=== PATIENT | male | born 1995 | race American Indian/Alaskan Native ===

== ENCOUNTER 2022-05-29 16:26 | Inpatient (IN) | payer SELFPAY ==
--- NOTE | 2022-05-29 17:24 | Emergency Department Report ---
ED Seizure HPI - General Chief Complaint: Seizure Stated Complaint: SEIZURE Time Seen by Provider: 05/29/22 17:05 Source: patient, EMS Mode of arrival: Stretcher Limitations: No Limitations - History of Present Illness Initial Comments: 27-year-old -Vietnamese male who reports having a tonic-clonic seizure according EMS patient had a seizure on the street. Patient denies having headache. Patient denies having any pain. Patient mitts that he has been drinking but reports only drinking 1 beer today. But he says he drank a sixpack yesterday. Complaint: seizure -: Sudden Description of Episode: loss of consciousness, tonic-clonic movement -: minutes(s) Seizure History: none Place: street/outdoors Possible Precipitating Event: alcohol withdrawal Associated Symptoms: denies other symptoms Treatments Prior to Arrival: none - Related Data Home Medications Medication Instructions Recorded Confirmed Last Taken No Known Home Medications [No 05/30/22 05/30/22 Unknown Reported Home Medications] Allergies Allergy/AdvReac Type Severity Reaction Status Date / Time No Known Allergies Allergy Verified 05/30/22 12:21 ED Review of Systems ROS: Stated complaint: SEIZURE Other details as noted in HPI Comment: All other systems reviewed and negative Constitutional: no symptoms reported Eyes: as per HPI ENT: as per HPI, other (Bit tongue) Respiratory: no symptoms reported Cardiovascular: as per HPI Endocrine: no symptoms reported Gastrointestinal: as per HPI, vomiting Musculoskeletal: as per HPI Neurological: as per HPI Psychiatric: as per HPI Hematological/Lymphatic: as per HPI ED Past Medical Hx - Past Medical History Previous Medical History?: No - Family History Family history: no significant - Social History Smoking Status: Current Every Day Smoker Substance Use Type: Alcohol - Medications Home Medications: Home Medications Medication Instructions Recorded Confirmed Last Taken Type No Known Home Medications [No 05/30/22 05/30/22 Unknown History Reported Home Medications] ED Physical Exam - General Limitations: No Limitations ED Course Vital Signs 05/29/22 05/29/22 05/29/22 16:40 16:45 17:01 Pulse Rate 77 76 82 Respiratory 19 17 18 Rate Blood Pressure 128/75 128/75 O2 Sat by Pulse 99 100 99 Oximetry 05/29/22 05/29/22 05/29/22 17:15 17:30 17:45 Pulse Rate 69 69 66 Respiratory 17 13 21 Rate Blood Pressure 123/78 128/75 126/75 O2 Sat by Pulse 99 99 99 Oximetry 05/29/22 05/29/22 05/29/22 18:01 18:15 18:31 Pulse Rate 63 74 59 L Respiratory 18 15 16 Rate Blood Pressure 126/75 129/73 123/78 O2 Sat by Pulse 100 100 100 Oximetry 05/29/22 05/29/22 05/29/22 18:45 19:01 19:15 Pulse Rate 60 59 L 62 Respiratory 15 18 15 Rate Blood Pressure 128/79 128/79 135/77 O2 Sat by Pulse 100 100 100 Oximetry 05/29/22 05/29/22 05/29/22 19:31 19:46 20:01 Pulse Rate 71 58 L 63 Respiratory 15 15 16 Rate Blood Pressure 135/77 135/77 O2 Sat by Pulse 100 100 100 Oximetry 05/29/22 05/29/22 05/29/22 20:15 20:31 20:45 Pulse Rate 67 62 66 Respiratory 15 18 13 Rate Blood Pressure 136/88 136/88 137/91 O2 Sat by Pulse 100 100 100 Oximetry 05/29/22 05/29/22 05/29/22 21:01 21:15 21:31 Pulse Rate 61 58 L 67 Respiratory 17 13 17 Rate Blood Pressure 137/91 128/65 128/65 O2 Sat by Pulse 100 100 100 Oximetry 05/29/22 05/29/22 05/29/22 21:45 22:01 22:15 Pulse Rate 68 60 68 Respiratory 18 19 11 L Rate Blood Pressure 137/88 137/88 133/80 O2 Sat by Pulse 100 100 100 Oximetry 05/29/22 05/29/22 05/29/22 22:31 22:35 22:40 Pulse Rate 72 69 Respiratory 18 22 Rate Blood Pressure 133/80 133/80 O2 Sat by Pulse 100 100 99 Oximetry 05/29/22 05/29/22 05/29/22 22:45 23:01 23:15 Pulse Rate 72 59 L 63 Respiratory 13 12 10 L Rate Blood Pressure 131/86 131/86 134/75 O2 Sat by Pulse 100 100 100 Oximetry 05/29/22 05/29/22 05/30/22 23:31 23:45 00:01 Pulse Rate 59 L 51 L 54 L Respiratory 15 15 17 Rate Blood Pressure 134/75 113/62 113/62 O2 Sat by Pulse 100 100 100 Oximetry 05/30/22 05/30/22 05/30/22 00:15 00:21 00:31 Pulse Rate 52 L 52 L 53 L Respiratory 14 13 14 Rate Blood Pressure 112/68 112/68 112/68 O2 Sat by Pulse 100 100 100 Oximetry 05/30/22 05/30/22 00:41 00:51 Pulse Rate 52 L 53 L Respiratory 14 13 Rate Blood Pressure 112/68 121/66 O2 Sat by Pulse 100 100 Oximetry ED Medical Decision Making - Lab Data Result diagrams: 05/30/22 04:07 05/30/22 04:07 Critical care attestation.: If time is entered above; I have spent that time in minutes in the direct care of this critically ill patient, excluding procedure time. ED Disposition Clinical Impression: Alcohol withdrawal delirium Disposition: 02 [facility]ORT TERM [facility]OSP[facility] Is pt being admited?: Yes Does the pt Need Aspirin: Yes Condition: Serious
[2022-05-29] MEDS ORDERED: LORazepam 2 MG/ML VIAL IM ONE (17:30)
[2022-05-29] MEDS ORDERED: LORazepam 1 MG TAB PO ONE (17:53)
--- NOTE | 2022-05-29 18:11 | Cat Scan Report ---
CT HEAD WITHOUT CONTRAST INDICATION / CLINICAL INFORMATION: seizure. TECHNIQUE: All CT scans at this location are performed using CT dose reduction for ALARA by means of automated exposure control. COMPARISON: None available. FINDINGS: CEREBRAL/CEREBELLAR PARENCHYMA: No significant abnormality. No acute territorial infarct. There is mi ld cerebellar atrophy for patient age, which is most notable within the right lateral cerebellar pancho sphere. HEMORRHAGE: No acute intra-axial hemorrhage or extra-axial fluid collection. MASS: No mass or mass effect. VENTRICULAR SYSTEM: Normal in size and morphology for the patient's age. ORBITS: Normal as visualized. SOFT TISSUES/SKULL: No scalp hematoma or skull fracture. PARANASAL SINUSES/MASTOID AIR CELLS: Normal as visualized. IMPRESSION: 1. No acute intracranial abnormality. 2. Mild cerebellar atrophy for patient age, which is most notable within the right lateral cerebellar hemisphere. Signer Name: Cesar Escudero MD Signed: 05/29/2022 6:07 PM Workstation Name: [id number]
[2022-05-29 19:13] LABS: Basophils % (Auto) 0.6 % (0.0-1.8); Eosinophils % (Auto) 0.2 % (0.0-4.3); Hematocrit 42.2 % (35.5-45.6); Hemoglobin 14.2 gm/dl (11.8-15.2); Lymphocytes # (Auto) 0.9 K/mm3 (1.2-5.4); Lymphocytes % (Auto) 11.2 % (13.4-35.0); Mean Corpuscular HGB Conc 34 % (32-34); Mean Corpuscular Volume 97 fl (84-94); Monocytes # (Auto) 0.5 K/mm3 (0.0-0.8); Monocytes % (Auto) 6.1 % (0.0-7.3); Platelet Count 227 K/mm3 (140-440); Red Blood Count 4.36 M/mm3 (3.65-5.03); Red Cell Distribution Width 14.3 % (13.2-15.2)
[2022-05-29 19:32] LABS: Alanine Aminotransferase 85 units/L (7-56); Albumin 4.8 g/dL (3.9-5); Blood Urea Nitrogen 10 mg/dL (9-20); Calcium 9.4 mg/dL (8.4-10.2); Hemolysis Index 13
[2022-05-29 19:41] LABS: BUN/Creatinine Ratio 14
[2022-05-29] MEDS ORDERED: diazePAM 10 MG/2 ML SYRINGE IV ONE (21:53)
[2022-05-29] MEDS ORDERED: ONDANSETRON 4 MG/2 ML INJ IV PRN (22:23)
[2022-05-29] MEDS ORDERED: ALBUTEROL 2.5 MG/3 ML NEBU IH PRN (22:23)
[2022-05-29] MEDS ORDERED: MORPHINE 2 MG/1 ML INJ IV PRN (22:23)
[2022-05-29] MEDS ORDERED: MORPHINE 4 MG/1 ML INJ IV PRN (22:23)
[2022-05-29] MEDS ORDERED: chlordiazePOXIDE 25 MG CAP PO PRN ×2 (22:23)
[2022-05-29] MEDS ORDERED: ACETAMINOPHEN 325 MG TAB PO PRN (22:23)
[2022-05-29] MEDS ORDERED: HALOPERIDOL LACTATE 5 MG/1 ML INJ IV PRN (22:23)
[2022-05-29] MEDS ORDERED: THIAMINE 100 MG, FOLIC ACID 1 MG, MULTIPLE VITAMIN INJ, ADULT 10 ML in SODIUM CHLORIDE ... IV ONE (22:25)
--- NOTE | 2022-05-29 22:29 | History and Physical Report ---
History of Present Illness Date of examination: 05/29/22 Date of admission: 05/29/22 Chief complaint: Alcohol withdrawal seizure History of present illness: 27-year-old -[place] male who reports having a tonic-clonic seizure according EMS patient had a seizure on the street. Patient denies having headache. Patient denies having any pain. Patient mitts that he has been drinking but reports only drinking 1 beer today. But he says he drank a sixpack yesterday. In the ER initial CT scan of the head shows no acute intracranial abnormality. We are going to admit the patient we will put the patient on [facility] protocol. Past History Past Medical History: other (Alcohol abuse) Past Surgical History: No surgical history Social history: smoking, alcohol abuse Family history: no significant family history Medications and Allergies Allergies Allergy/AdvReac Type Severity Reaction Status Date / Time No Known Allergies Allergy Verified 05/29/22 16:32 Review of Systems All systems: negative Constitutional: fatigue, other (Seizure) Exam - Constitutional General appearance: Present: no acute distress, well-nourished - EENT Eyes: Present: PERRL ENT: hearing intact, clear oral mucosa - Neck Neck: Present: supple, normal ROM - Respiratory Respiratory effort: normal Respiratory: bilateral: CTA - Cardiovascular Heart Sounds: Present: S1 & S2. Absent: rub, click - Extremities Extremities: pulses symmetrical, No edema Peripheral Pulses: within normal limits - Abdominal General gastrointestinal: Present: soft, non-tender, non-distended, normal bowel sounds Male genitourinary: Present: normal - Integumentary Integumentary: Present: clear, warm, dry - Musculoskeletal Musculoskeletal: gait normal, strength equal bilaterally - Psychiatric Psychiatric: appropriate mood/affect, intact judgment & insight - Neurologic Neurologic: CNII-XII intact, moves all extremities Results - Labs CBC & Chem 7: 05/29/22 18:55 05/29/22 18:55 Labs: Laboratory Last Values WBC 8.1 K/mm3 (4.5-11.0) 05/29/22 18:55 RBC 4.36 M/mm3 (3.65-5.03) 05/29/22 18:55 Hgb 14.2 gm/dl (11.8-15.2) 05/29/22 18:55 Hct 42.2 % (35.5-45.6) 05/29/22 18:55 MCV 97 fl (84-94) H 05/29/22 18:55 MCH 33 pg (28-32) H 05/29/22 18:55 MCHC 34 % (32-34) 05/29/22 18:55 RDW 14.3 % (13.2-15.2) 05/29/22 18:55 Plt Count 227 K/mm3 (140-440) 05/29/22 18:55 Lymph % (Auto) 11.2 % (13.4-35.0) L 05/29/22 18:55 [place] % (Auto) 6.1 % (0.0-7.3) 05/29/22 18:55 Eos % (Auto) 0.2 % (0.0-4.3) 05/29/22 18:55 Baso % (Auto) 0.6 % (0.0-1.8) 05/29/22 18:55 Lymph # (Auto) 0.9 K/mm3 (1.2-5.4) L 05/29/22 18:55 [place] # (Auto) 0.5 K/mm3 (0.0-0.8) 05/29/22 18:55 Eos # (Auto) 0.0 K/mm3 (0.0-0.4) 05/29/22 18:55 Baso # (Auto) 0.0 K/mm3 (0.0-0.1) 05/29/22 18:55 Seg Neutrophils % 81.9 % (40.0-70.0) H 05/29/22 18:55 Seg Neutrophils # 6.6 K/mm3 (1.8-7.7) 05/29/22 18:55 Sodium 133 mmol/L (137-145) L 05/29/22 18:55 Potassium 3.9 mmol/L (3.6-5.0) 05/29/22 18:55 Chloride 98.7 mmol/L (98-107) 05/29/22 18:55 Carbon Dioxide 22 mmol/L (22-30) 05/29/22 18:55 Anion Gap 16 mmol/L 05/29/22 18:55 BUN 10 mg/dL (9-20) 05/29/22 18:55 Creatinine 0.7 mg/dL (0.8-1.3) L 05/29/22 18:55 Estimated GFR > 60 ml/min 05/29/22 18:55 BUN/Creatinine Ratio 14 % 05/29/22 18:55 Glucose 84 mg/dL (75-100) 05/29/22 18:55 Calcium 9.4 mg/dL (8.4-10.2) 05/29/22 18:55 Total Bilirubin 0.60 mg/dL (0.1-1.2) 05/29/22 18:55 AST 72 units/L (5-40) H 05/29/22 18:55 ALT 85 units/L (7-56) H 05/29/22 18:55 Alkaline Phosphatase 73 units/L (35-129) 05/29/22 18:55 Total Protein 7.1 g/dL (6.3-8.2) 05/29/22 18:55 Albumin 4.8 g/dL (3.9-5) 05/29/22 18:55 Albumin/Globulin Ratio 2.1 % 05/29/22 18:55 Plasma/Serum Alcohol < 0.01 % (0-0.07) 05/29/22 18:55 - Imaging and Cardiology CT Scan - head: report reviewed Assessment and Plan VTE prophylaxis?: Mechanical Plan of care discussed with patient/family: Yes - Patient Problems (1) Seizure Current Visit: Yes Status: Acute Plan to address problem: Admit the patient to the medical telemetry. Patient is on seizure precaution. We will put the patient on Valium 2 mg IV every 6 hours as needed. Put the patient on CIWA protocol. Order EEG. Consult neurology if needed (2) Alcohol abuse Current Visit: Yes Status: Acute Plan to address problem: Counseled regarding quit drinking. We put the patient on thiamine, folic acid and banana bag daily (3) Tobacco abuse Current Visit: Yes Status: Acute Plan to address problem: Counseled regarding quitting smoking. We will put the patient on nicotine patch if needed (4) Alcohol withdrawal delirium Current Visit: Yes Status: Acute Plan to address problem: Counseled regarding quit drinking. We put the patient on thiamine, folic acid and banana bag daily (5) DVT prophylaxis Current Visit: Yes Status: Acute Plan to address problem: SCD for DVT prophylaxis because of seizure. Pepcid 20 mg p.o. twice daily for GI prophylaxis. Patient is a full code
[2022-05-29] MEDS ORDERED: D5W/0.45% NACL 1,000 ML IV SCH (23:00)
[2022-05-30 04:23] LABS: Basophils % (Auto) 0.3 % (0.0-1.8); Eosinophils # (Auto) 0.1 K/mm3 (0.0-0.4); Eosinophils % (Auto) 1.4 % (0.0-4.3); Hematocrit 39.9 % (35.5-45.6); Hemoglobin 13.8 gm/dl (11.8-15.2); Lymphocytes # (Auto) 1.4 K/mm3 (1.2-5.4); Lymphocytes % (Auto) 20.4 % (13.4-35.0); Mean Corpuscular HGB Conc 35 % (32-34); Mean Corpuscular Volume 97 fl (84-94); Monocytes # (Auto) 0.7 K/mm3 (0.0-0.8); Monocytes % (Auto) 10.4 % (0.0-7.3); Platelet Count 217 K/mm3 (140-440); Red Blood Count 4.11 M/mm3 (3.65-5.03); Red Cell Distribution Width 14.3 % (13.2-15.2)
[2022-05-30 04:44] LABS: Alanine Aminotransferase 73 units/L (7-56); Albumin 4.4 g/dL (3.9-5); Blood Urea Nitrogen 11 mg/dL (9-20); Hemolysis Index 11
[2022-05-30 04:49] LABS: BUN/Creatinine Ratio 18
[2022-05-30] MEDS: IPRATROPIUM/ALBUTEROL SULFATE 3 ML AMPUL.NEB IH SCH ×2 (07:47→11:22)
--- NOTE | 2022-05-30 08:53 | Progress Note ---
Assessment and Plan Assessment and plan: History of present illness: 27-year-old -[place] male who reports having a tonic-clonic seizure according EMS patient had a seizure on the street. Patient denies having headache. Patient denies having any pain. Patient mitts that he has been drinking but reports only drinking 1 beer today. But he says he drank a sixpack yesterday. In the ER initial CT scan of the head shows no acute intracranial abnormality. We are going to admit the patient we will put the patient on CIWA protocol. Hospital Course: 05/30: Assessment and Plan: (1) Seizure Current Visit: Yes Status: Acute Plan to address problem: Admit the patient to the medical telemetry. Patient is on seizure precaution. We will put the patient on Valium 2 mg IV every 6 hours as needed. Put the patient on CIWA protocol. Order EEG. Consult neurology if needed (2) Alcohol abuse Current Visit: Yes Status: Acute Plan to address problem: Counseled regarding quit drinking. We put the patient on thiamine, folic acid and banana bag daily (3) Tobacco abuse Current Visit: Yes Status: Acute Plan to address problem: Counseled regarding quitting smoking. We will put the patient on nicotine patch if needed (4) Alcohol withdrawal delirium Current Visit: Yes Status: Acute Plan to address problem: Counseled regarding quit drinking. We put the patient on thiamine, folic acid and banana bag daily (5) DVT prophylaxis Current Visit: Yes Status: Acute Plan to address problem: SCD for DVT prophylaxis because of seizure. Pepcid 20 mg p.o. twice daily for GI prophylaxis. Patient is a full code #Advance care planning Disease education conducted, care plan discussed, diagnoses discussed, prognosis discussed, patient is full code, patient acknowledges understanding and agree with care plan, +30 minutes. Hospitalist Physical - Constitutional Vitals: Temp Pulse Resp BP Pulse Ox 98.1 F 51 L 18 132/72 100 05/30/22 08:22 05/30/22 08:22 05/30/22 08:22 05/30/22 08:22 05/30/22 08:22 General appearance: Present: no acute distress, well-nourished Results - Labs CBC & Chem 7: 05/30/22 04:07 05/30/22 04:07 Labs: Laboratory Last Values WBC 6.6 K/mm3 (4.5-11.0) 05/30/22 04:07 RBC 4.11 M/mm3 (3.65-5.03) 05/30/22 04:07 Hgb 13.8 gm/dl (11.8-15.2) 05/30/22 04:07 Hct 39.9 % (35.5-45.6) 05/30/22 04:07 MCV 97 fl (84-94) H 05/30/22 04:07 MCH 34 pg (28-32) H 05/30/22 04:07 MCHC 35 % (32-34) H 05/30/22 04:07 RDW 14.3 % (13.2-15.2) 05/30/22 04:07 Plt Count 217 K/mm3 (140-440) 05/30/22 04:07 Lymph % (Auto) 20.4 % (13.4-35.0) 05/30/22 04:07 [place] % (Auto) 10.4 % (0.0-7.3) H 05/30/22 04:07 Eos % (Auto) 1.4 % (0.0-4.3) 05/30/22 04:07 Baso % (Auto) 0.3 % (0.0-1.8) 05/30/22 04:07 Lymph # (Auto) 1.4 K/mm3 (1.2-5.4) 05/30/22 04:07 [place] # (Auto) 0.7 K/mm3 (0.0-0.8) 05/30/22 04:07 Eos # (Auto) 0.1 K/mm3 (0.0-0.4) 05/30/22 04:07 Baso # (Auto) 0.0 K/mm3 (0.0-0.1) 05/30/22 04:07 Seg Neutrophils % 67.5 % (40.0-70.0) 05/30/22 04:07 Seg Neutrophils # 4.5 K/mm3 (1.8-7.7) 05/30/22 04:07 Sodium 136 mmol/L (137-145) L 05/30/22 04:07 Potassium 3.7 mmol/L (3.6-5.0) 05/30/22 04:07 Chloride 101.5 mmol/L (98-107) 05/30/22 04:07 Carbon Dioxide 22 mmol/L (22-30) 05/30/22 04:07 Anion Gap 16 mmol/L 05/30/22 04:07 BUN 11 mg/dL (9-20) 05/30/22 04:07 Creatinine 0.6 mg/dL (0.8-1.3) L 05/30/22 04:07 Estimated GFR > 60 ml/min 05/30/22 04:07 BUN/Creatinine Ratio 18 % 05/30/22 04:07 Glucose 81 mg/dL (75-100) 05/30/22 04:07 Calcium 9.0 mg/dL (8.4-10.2) 05/30/22 04:07 Total Bilirubin 1.10 mg/dL (0.1-1.2) 05/30/22 04:07 AST 56 units/L (5-40) H 05/30/22 04:07 ALT 73 units/L (7-56) H 05/30/22 04:07 Alkaline Phosphatase 70 units/L (35-129) 05/30/22 04:07 Total Protein 7.0 g/dL (6.3-8.2) 05/30/22 04:07 Albumin 4.4 g/dL (3.9-5) 05/30/22 04:07 Albumin/Globulin Ratio 1.7 % 05/30/22 04:07 Plasma/Serum Alcohol < 0.01 % (0-0.07) 05/29/22 18:55 [place]/IV: Voiding Method Toilet Active Medications - Current Medications Current Medications: Generic Name Dose Route Start Last Admin Trade Name Freq PRN Reason Stop Dose Admin Acetaminophen 650 mg 05/29/22 22:23 Acetaminophen 325 Mg Tab PO Q4H PRN Pain MILD(1-3)/Fever >100.5/LARSON Albuterol 2.5 mg 05/29/22 22:23 Albuterol 2.5 Mg/3 Ml Nebu IH Q3HRT PRN Shortness Of Breath Chlordiazepoxide HCl 50 mg 05/29/22 22:23 Chlordiazepoxide 25 Mg Cap PO Q1H PRN CIWA-Ar 8-15 Chlordiazepoxide HCl 100 mg 05/29/22 22:23 Chlordiazepoxide 25 Mg Cap PO Q1H PRN CIWA-Ar 16-25 Famotidine 20 mg 05/30/22 10:00 Famotidine 20 Mg Tab PO BID BRIDGET Haloperidol Lactate 5 mg 05/29/22 22:23 Haloperidol Lactate 5 Mg/1 Ml Inj IV Q1H PRN Unrespon. to mult. doses BZD's Dextrose/Sodium Chloride 1,000 mls @ 100 mls/hr 05/29/22 23:00 05/30/22 01:40 D5/0.45ns IV 100 mls/hr DIRECT BRIDGET Administration Morphine Sulfate 2 mg 05/29/22 22:23 Morphine 2 Mg/1 Ml Inj IV Q4H PRN Pain, Moderate (4-6) Morphine Sulfate 4 mg 05/29/22 22:23 Morphine 4 Mg/1 Ml Inj IV Q4H PRN Pain , Severe (7-10) Ondansetron HCl 4 mg 05/29/22 22:23 Ondansetron 4 Mg/2 Ml Inj IV Q8H PRN Nausea And Vomiting Sodium Chloride 10 ml 05/30/22 10:00 Sodium Chloride 0.9% 10 Ml Flush Syringe IV BID BRIDGET Sodium Chloride 10 ml 05/29/22 22:23 Sodium Chloride 0.9% 10 Ml Flush Syringe IV PRN PRN LINE FLUSH
[2022-05-30] MEDS ORDERED: FAMOTIDINE 20 MG TAB PO SCH (10:00)
[2022-05-30 12:00] VITALS: BP 127/72
--- NOTE | 2022-05-30 12:14 | Discharge Summary ---
Providers - Providers Date of Admission: 05/29/22 22:23 Date of discharge: 05/30/22 Attending physician: HERMINIO ALEGRE MD Primary care physician: BUSINESS [employer]ANCIAL COUNSEL Hospitalization Reason for admission: seizure Condition: Serious Hospital course: History of present illness: 27-year-old -[place] male who reports having a tonic-clonic seizure according EMS patient had a seizure on the street. Patient denies having headache. Patient denies having any pain. Patient mitts that he has been drinking but reports only drinking 1 beer today. But he says he drank a sixpack yesterday. In the ER initial CT scan of the head shows no acute intracranial abnormality. We are going to admit the patient we will put the patient on CIWA protocol. Hospital Course: 05/30: No seizure events since prior to admission. Workup with ct imaging and metabolic panel negative. No prior history of seizures. patient is not withdrawing from alcohol on my assessment. CIWA score of 0.Discussed risks of alcohol abuse and encouraged patient to register for substance abuse program. He was also counseled on not operating a motorized vehicle until cleared by his primary care physician. No prescriptions need on discharge. Assessment and Plan: (1) Seizure Current Visit: Yes Status: Acute Plan to address problem: Admit the patient to the medical telemetry. Patient is on seizure precaution. We will put the patient on Valium 2 mg IV every 6 hours as needed. Put the patient on CIWA protocol. Order EEG. Consult neurology if needed (2) Alcohol abuse Current Visit: Yes Status: Acute Plan to address problem: Counseled regarding quit drinking. We put the patient on thiamine, folic acid and banana bag daily (3) Tobacco abuse Current Visit: Yes Status: Acute Plan to address problem: Counseled regarding quitting smoking. We will put the patient on nicotine patch if needed (4) Alcohol withdrawal delirium Current Visit: Yes Status: Acute Plan to address problem: Counseled regarding quit drinking. We put the patient on thiamine, folic acid and banana bag daily (5) DVT prophylaxis Current Visit: Yes Status: Acute Plan to address problem: SCD for DVT prophylaxis because of seizure. Pepcid 20 mg p.o. twice daily for GI prophylaxis. Patient is a full code #Advance care planning Disease education conducted, care plan discussed, diagnoses discussed, prognosis discussed, patient is full code, patient acknowledges understanding and agree with care plan, +30 minutes. Disposition: 01 HOME / SELF CARE / HOMELESS Final Discharge Diagnosis (Prints w/discharge instructions): Alcohol Abuse, Seizure Time spent for discharge: 35 Core Measure Documentation - Palliative Care Palliative Care/ Comfort Measures: Not Applicable - Core Measures Any of the following diagnoses?: none Exam - Physical Exam Narrative exam: Physical Exam: VITAL SIGNS: Reviewed. GENERAL: The patient appears normally developed, Vital signs as documented. HEAD: No signs of head trauma. EYES: Pupils are equal. Extraocular motions intact. EARS: Hearing grossly intact. MOUTH: Oropharynx is normal. NECK: No adenopathy, no JVD. CHEST: Chest with clear breath sounds bilaterally. No wheezes, rales, or rhonchi. CARDIAC: Regular rate and rhythm. S1 and S2, without murmurs, gallops, or rubs. VASCULAR: No Edema. Peripheral pulses normal and equal in all extremities. ABDOMEN: Soft, non tender and non distended. No rebound or guarding, and no masses palpated. Bowel Sounds normal. MUSCULOSKELETAL: Good range of motion of all major joints. Extremities without clubbing, cyanosis or edema. NEUROLOGIC EXAM: Alert and oriented x 4. no focal sensory or strength deficits. PSYCHIATRIC: Mood normal. SKIN: detail exam as documented in skin assessment - Constitutional Vitals: Temp Pulse Resp BP Pulse Ox 98.1 F 51 L 18 132/72 100 05/30/22 08:22 05/30/22 08:22 05/30/22 08:22 05/30/22 08:22 05/30/22 08:22 Plan Follow up with: PRIMARY MD HEATHER [Primary Care Provider] - 3-5 Days
== END 2022-05-30 16:13 | disposition home or self-care (01) | DRG 101 ==
LOC: EDSEX → ED 16:26 → 4A 22:23
PROVIDERS: ADMIT Hospitalist; ATTEND Internal Medicine
DX: R56.9 Unspecified convulsions (principal); F10.131 Alcohol abuse with withdrawal delirium; F17.200 Nicotine dependence, unspecified, uncomplicated; Z71.6 Tobacco abuse counseling; Y90.9 Presence of alcohol in blood, level not specified
CPT/HCPCS: 36415; 70450; 80053; 80320; 85025; G0378; J3490; J7070; G0480; J3360; J3411; J7030

== ENCOUNTER 2022-06-14 18:29 | Emergency (ER) | payer SELFPAY ==
[2022-06-14] MEDS ORDERED: SODIUM CHLORIDE 0.9% 1000 ML 1,000 ML IV ONE (18:52)
[2022-06-14] MEDS ORDERED: PHENYTOIN 1,000 MG in SODIUM CHLORIDE 0.9% 250ML 250 ML IV ONE (19:00)
--- NOTE | 2022-06-14 19:56 | Cat Scan Report ---
CT HEAD WITHOUT CONTRAST INDICATION / CLINICAL INFORMATION: Seizure. TECHNIQUE: All CT scans at this location are performed using CT dose reduction for ALARA by means of automated e xposure control. COMPARISON: Head CT 05/29/2022 FINDINGS: HEMORRHAGE: No evidence of intracranial hemorrhage or extra-axial fluid collection. EXTRA-AXIAL SPACES: Cortical sulci, sylvian fissures and basilar cisterns have an unremarkable appear ance. VENTRICULAR SYSTEM: The third and lateral ventricles are of normal size and configuration. CEREBRAL PARENCHYMA: No areas of abnormal brain parenchymal attenuation are identified. There is no i ndication of recent infarction. MIDLINE SHIFT OR HERNIATION: There is no mass effect. CEREBELLUM / BRAINSTEM: Vermian and cerebellar atrophy is observed. An area of decreased attenuation in the anterior aspect of the right cerebellar hemisphere just posterior to the petrous bone represen ts volume averaging with a dilated cerebellar sulcus. Brainstem has an unremarkable appearance. MIDLINE STRUCTURES:No abnormalities of the pituitary gland or pineal region are identified. INTRACRANIAL VESSELS:No abnormalities are identified on this noncontrast head CT. ORBITS: visualized portions of the orbits have an unremarkable appearance. SOFT TISSUES of HEAD: No significant abnormality. CALVARIUM: Evaluation of bone windows reveals no abnormalities. PARANASAL SINUSES / MASTOID AIR CELLS: Visualized portions of the paranasal sinuses are free from inf lammatory mucosal disease. Mastoid air cells are normally pneumatized. ADDITIONAL FINDINGS: None. IMPRESSION: 1. Mild cerebellar inferomedial atrophy. This is unchanged from recent previous study. 2. Otherwise normal head CT without contrast. Signer Name: Jabari Bach MD Signed: 06/14/2022 7:52 PM Workstation Name: [id number]
[2022-06-14 20:54] LABS: Alanine Aminotransferase 29 units/L (7-56); Albumin 5.2 g/dL (3.9-5); Blood Urea Nitrogen 8 mg/dL (9-20); Calcium 9.9 mg/dL (8.4-10.2); Hemolysis Index 67
[2022-06-14 20:56] LABS: BUN/Creatinine Ratio 11
[2022-06-14 21:03] LABS: Basophils % (Auto) 0.4 % (0.0-1.8); Eosinophils % (Auto) 0.2 % (0.0-4.3); Hematocrit 45.9 % (35.5-45.6); Hemoglobin 15.9 gm/dl (11.8-15.2); Lymphocytes # (Auto) 1.1 K/mm3 (1.2-5.4); Lymphocytes % (Auto) 9.9 % (13.4-35.0); Mean Corpuscular HGB Conc 35 % (32-34); Mean Corpuscular Volume 98 fl (84-94); Monocytes # (Auto) 0.6 K/mm3 (0.0-0.8); Monocytes % (Auto) 5.3 % (0.0-7.3); Red Blood Count 4.69 M/mm3 (3.65-5.03); Red Cell Distribution Width 14.4 % (13.2-15.2)
[2022-06-14 21:07] LABS: Platelet Count 333 K/mm3 (140-440)
[2022-06-14 22:33] LABS: Amphetamine Screen,Urine Negative; Benzodiazepines Screen,Urine Negative; Cocaine Screen,Urine Negative; Methadone Screen,Urine Negative; Opiate Screen,Urine Negative
[2022-06-14 22:37] LABS: Cannabinoid Screen,Urine Positive
[2022-06-14 22:38] LABS: Bacteria,Urine 1+ /HPF (Negative); WBC,Urine < 1.0 /HPF (0.0-6.0)
[2022-06-14 22:46] LABS: Color,Urine Yellow (Yellow)
--- NOTE | 2022-06-14 22:59 | Emergency Department Report ---
ED General Adult HPI - General Chief complaint: Seizure Stated complaint: SEIZURE PUI?: No Time Seen by Provider: 06/14/22 18:47 Source: patient Mode of arrival: Stretcher Limitations: Altered Mental Status - History of Present Illness Initial comments: WITNESSED SEIZURE, PATIENT POST ICTAL. PATIENT HAS A HISTORY OF SEIZURE pt is heavy drinker and had hsitory of alcohol withdrowal seziure -: Sudden, hour(s) Location: head, mouth Severity scale (0 -10): 0 Consistency: now resolved Associated Symptoms: denies: denies other symptoms, confusion, chest pain, cough, diaphoresis - Related Data Previous Rx's Medication Instructions Recorded Last Taken Type Phenytoin [Dilantin] 100 mg PO Q8HR #60 capsule 06/14/22 Unknown Rx Allergies Allergy/AdvReac Type Severity Reaction Status Date / Time No Known Allergies Allergy Verified 06/14/22 18:36 ED Review of Systems ROS: Stated complaint: SEIZURE Other details as noted in HPI Constitutional: denies: chills, fever Eyes: denies: eye pain, eye discharge, vision change ENT: denies: ear pain, throat pain Respiratory: denies: cough, shortness of breath, wheezing Cardiovascular: denies: chest pain, palpitations Endocrine: no symptoms reported Gastrointestinal: denies: abdominal pain, nausea, diarrhea Genitourinary: denies: urgency, dysuria Musculoskeletal: denies: back pain, joint swelling, arthralgia Skin: denies: rash, lesions Neurological: denies: headache, weakness, paresthesias Psychiatric: denies: anxiety, depression Hematological/Lymphatic: denies: easy bleeding, easy bruising ED Past Medical Hx - Past Medical History Previous Medical History?: No Hx Hypertension: No - Social History Smoking Status: Current Every Day Smoker Substance Use Type: Alcohol - Medications Home Medications: Home Medications Medication Instructions Recorded Confirmed Last Taken Type Phenytoin [Dilantin] 100 mg PO Q8HR #60 capsule 06/14/22 Unknown Rx ED Physical Exam - General Limitations: Altered Mental Status General appearance: alert, in no apparent distress - Head Head exam: Present: normocephalic, other (brusies and abrasion ) - Eye Eye exam: Present: normal appearance - ENT ENT exam: Present: mucous membranes moist - Neck Neck exam: Present: normal inspection - Respiratory Respiratory exam: Present: normal lung sounds bilaterally. Absent: respiratory distress - Cardiovascular Cardiovascular Exam: Present: regular rate, normal rhythm. Absent: systolic mu rmur, diastolic murmur, rubs, gallop - GI/Abdominal GI/Abdominal exam: Present: soft, normal bowel sounds - Rectal Rectal exam: Present: deferred - Extremities Exam Extremities exam: Present: normal inspection - Back Exam Back exam: Present: normal inspection - Neurological Exam Neurological exam: Present: alert, oriented X3 - Psychiatric Psychiatric exam: Present: normal affect, normal mood - Skin Skin exam: Present: warm, dry, intact, normal color. Absent: rash ED Course Vital Signs 06/14/22 18:30 Temperature 98.2 F Pulse Rate 88 Respiratory 16 Rate Blood Pressure 140/90 [Left] O2 Sat by Pulse 97 Oximetry ED Medical Decision Making - Lab Data Result diagrams: 06/14/22 19:40 06/14/22 19:40 Critical care attestation.: If time is entered above; I have spent that time in minutes in the direct care of this critically ill patient, excluding procedure time. ED Disposition Clinical Impression: Seizure, Alcohol abuse Disposition: 01 HOME / SELF CARE / HOMELESS Is pt being admited?: No Does the pt Need Aspirin: No Condition: Stable Instructions: Alcohol Abuse and Dependence Information, Adult, Alcohol Abuse and Nutrition, Seizure, Adult
[2022-06-15 02:30] VITALS: BP 124/78
== END 2022-06-14 23:15 | disposition home or self-care (01) ==
LOC: ED 18:29
DX: R56.9 Unspecified convulsions (principal); F10.10 Alcohol abuse, uncomplicated; F17.200 Nicotine dependence, unspecified, uncomplicated
CPT/HCPCS: 36415; 70450; 80053; 80307; 81001; 82550; 84484; 85025; 96365; 96366; 99284; J1165; J7030; J7050; 80320; G0480